=== PATIENT | female | born 1985 | race Caucasian/White ===

== ENCOUNTER → 2019-08-08 | Outpatient (CLI) | payer BC ==
--- NOTE | 2019-08-08 17:26 | RAD ---
PQRS Compliance Statement: One or more of the following individualized dose reduction techniques were utilized for this examination: 1. Automated exposure control 2. Adjustment of the mA and/or kV according to patient size 3. Use of iterative reconstruction technique CT ABDOMEN PELVIS WO CONTRAST Clinical Indication: Right lower quadrant and right flank pain. Hematuria. Comparison: CT abdomen and pelvis without contrast December 28, 2004. Technique: Helical CT imaging of the abdomen and pelvis is performed without IV or oral contrast. Findings: Evaluation of solid organs and bowel is limited without oral and IV contrast, decreasing sensitivity for detection of pathology. Lung bases essentially clear. Cardiac size normal. Gallbladder is not well distended accentuating the wall thickness. The liver, spleen, pancreas, adrenal glands, and abdominal aorta caliber are normal. The left kidney is normal. There is a punctate nonobstructing right interpolar renal calculus. There is no hydronephrosis. Stomach unremarkable. No dilated small bowel. The appendix is normal. There is no colon wall thickening. There is scattered stool in the colon. There is no abdominal adenopathy or free fluid. Urinary bladder is mostly decompressed. There couple of tiny bubbles of air. Correlate to whether there has been recent catheterization. The uterus is anteverted. Ovaries not well seen. No pelvic free fluid. Endplate spurring of L5/S1. Mild grade 1 retrolisthesis of L4 on L5. IMPRESSION: 1. No acute abdominal or pelvic abnormality. No obstructive uropathy. 2. The appendix is normal. 3. Punctate nonobstructing right renal calculus. Electronically signed by: Ashu Pacheco MD (08/08/2019 5:23 PM) [facility]
== END | disposition home or self-care (01) ==
LOC: CT 16:44
PROVIDERS: ATTEND Physician Assistant
DX: N20.0 Calculus of kidney (principal)
CPT/HCPCS: 74176

== ENCOUNTER → 2021-08-09 | Outpatient (CLI) | payer BC ==
--- NOTE | 2021-08-09 08:34 | RAD ---
EXAM: Abdomen sonogram. HISTORY: Pain. TECHNIQUE: Sonographic imaging of the abdomen was performed. COMPARISON: CT dated 08/08/2019. FINDINGS: The liver is normal in size. No focal hepatic lesion is seen. The common bile duct is nidia l in caliber. There is a 2.2 cm gallstone. There is no evidence of cholecystitis. The right kidney, p ancreas and inferior vena cava are unremarkable. IMPRESSION: 1. 2.2 cm gallstone. 2. No acute sonographic finding. Electronically signed by: Estefanía Cho MD (08/09/2021 8:31 AM) [id number]
== END ==
LOC: US 07:48
PROVIDERS: ATTEND Obstetrics & Gynecology
DX: K80.80 Other cholelithiasis without obstruction (principal)
CPT/HCPCS: 76705